=== PATIENT | female | born 1980 | race Caucasian/White ===

== ENCOUNTER 2022-01-26 19:18 | Emergency (ER) | payer OTHER, SELFPAY ==
[2022-01-26 19:29] VITALS: BP 148/100; PULSE 93; RESP 18; TEMP 36.4; O2SAT 100
--- NOTE | 2022-01-26 19:36 | ED.DENTAL ---
HPI - Dental/Oral General Chief complaint: Dental/Oral Stated complaint: Tooth Pain Time Seen by Provider: 01/26/22 19:36 Source: patient Mode of arrival: ambulatory Limitations: no limitations History of Present Illness HPI Narrative: 41-year-old female presents with right upper dental pain with facial swelling. States that swelling was actually worse yesterday but has been taking ibuprofen all day and is now improved. Reports that she has several rotten teeth that need to be extracted. Has not been able to see her oral surgeon due to no vehicle. Patient requesting antibiotics. All systems reviewed and negative except as noted above Related Data Allergies Allergy/AdvReac Type Severity Reaction Status Date / Time No Known Allergies Allergy Unverified 01/26/22 19:23 Review of Systems Review of Systems: CONSTITUTIONAL: Denies fever, chills, or sweats. EYES: Denies visual changes, redness, or discharge. ENT: Denies rhinorrhea, congestion, sore throat, or otalgia. Right-sided dental pain with facial swelling. CARDIOVASCULAR: Denies chest pain, palpitations, or edema. RESPIRATORY: Denies cough or dyspnea. GASTROINTESTINAL: Denies abdominal pain, nausea, vomiting, or diarrhea. GENITOURINARY: Denies dysuria or hematuria. SKIN: Denies rash or itching. MUSCULOSKELETAL: Denies back pain, joint pain, or myalgia. NEUROLOGIC: Denies headache, numbness, or weakness. PSYCHIATRIC: Denies anxiety or depression. All other systems reviewed are negative, except as documented in HPI. PMFSH Comments At time of signature, agree with nursing past medical, surgical, social and family history. There is no relevant family history pertinent to the presenting complaint. Exam Narrative: GENERAL: This is a well-nourished, well-developed patient, in no apparent distress. HEAD: normocephalic, atraumatic. EYES: PERRL. Sclera clear/white. EARS: External ears normal. NOSE: External nose normal. MOUTH: all of upper teeth are rotten and broken down at gumline. there is a possible R sided dental abscess. Swelling to R cheek with erythema NECK: Neck supple, non-tender without lymphadenopathy, masses or thyromegaly. CARDIOVASCULAR: Regular rate and rhythm without murmurs, gallops, or rubs. RESPIRATORY: Clear to auscultation. Breath sounds equal bilaterally. No wheezes, rales, or rhonchi. SKIN: warm, Dry, intact with no suspicious lesions or rash, good texture and turgor. NEURO: awake, alert, and oriented to person, place and time. There were no obvious focal neurologic abnormalities. EXTREMITIES: Normal range of motion Course Course Level of Care: Express Care Visit Vital Signs Vital signs: Vital Signs Temperature 36.4 C L 01/26/22 19:29 Pulse Rate 93 01/26/22 19:29 Respiratory Rate 18 01/26/22 19:29 Blood Pressure 148/100 H 01/26/22 19:29 Pulse Oximetry 100 01/26/22 19:29 Temperature 36.4 C L 01/26/22 19:29 Pulse Rate 93 01/26/22 19:29 Respiratory Rate 18 01/26/22 19:29 Blood Pressure 148/100 H 01/26/22 19:29 Pulse Oximetry 100 01/26/22 19:29 Reviewed MDM - Dental/Oral MDM Narrative Medical decision making narrative: Recommend patient go to ER for IV antibiotics, facial CT, possible I&D. Patient refused. States that she wants oral antibiotics and if not better in a day she will go to the ER by them. Patient is aware of diagnosis, understands and agrees to treatment plan. Anticipatory guidance given. Patient agrees to follow-up as directed and is aware of reasons to seek care at the emergency department. Portions of this record may have been created with voice recognition software Differential Diagnosis Differential diagnosis: Likely gingival abscess, dental caries, toothache, dental abscess and fracture of tooth Discharge Plan Discharge Clinical Impression: Cellulitis of face, Abscess, dental Patient Disposition: Home, Self-Care Condition: Stable Instructions: Antibiotic Form, Dental Abscess (E
[2022-01-26] MEDS: cefTRIAXone 1 GM, LIDOCAINE HCL 1% LOCAL INJ 2.1 ML IM (19:52)
== END 2022-01-26 20:04 | disposition home or self-care (01) ==
PROVIDERS: Emergency Provider Nurse Practitioner Family
DX: L03.211 Cellulitis of face (principal); K04.7 Periapical abscess without sinus
CPT/HCPCS: 96372; 99213; G0463; J0696